=== PATIENT | male | born 1995 | race Caucasian/White ===

== ENCOUNTER 2018-06-30 14:53 | Emergency (ER) | payer BC ==
[2018-06-30] MEDS ORDERED: MORPHINE SULFATE 10 MG/ML INJ IM ONE (15:02)
--- NOTE | 2018-06-30 15:27 | RADIOLOGY REPORT (SQ) ---
EXAM DESCRIPTION: SHOULDER RIGHT 2 OR MORE VIEWS COMPLETED DATE/TIME: 06/30/2018 3:18 pm REASON FOR STUDY: deformity right shoulder pain COMPARISON: None. NUMBER OF VIEWS: Two views. TECHNIQUE: Frontal and lateral images acquired of the right shoulder. LIMITATIONS: None. FINDINGS: MINERALIZATION: Normal. BONES: Anterior dislocation. No fracture. JOINTS: Anterior dislocation. VISUALIZED LUNGS AND RIBS: No pneumothorax. No rib fracture. SOFT TISSUES: No radiopaque foreign body. OTHER: No other significant finding. IMPRESSION: Anterior dislocation of the shoulder. TECHNICAL DOCUMENTATION: JOB ID: [id number] [employer]- All Rights Reserved Reading location - IP/workstation name: [email or web address]
[2018-06-30] MEDS ORDERED: NORMAL SALINE 1000 ML 1,000 ML IV ONE (15:38)
[2018-06-30] MEDS ORDERED: KETOROLAC TROMETHAMINE INJ/PF 30 MG/1 ML SDV IV ONE (15:39)
[2018-06-30] MEDS ORDERED: FENTANYL CITRATE INJ/PF 100 MCG/2 ML AMPUL IV ONE (15:39)
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
--- NOTE | 2018-06-30 16:40 | RADIOLOGY REPORT (SQ) ---
EXAM DESCRIPTION: SHOULDER RIGHT 1 VIEW COMPLETED DATE/TIME: 06/30/2018 4:30 pm REASON FOR STUDY: POST REDUCTION COMPARISON: 06/30/2018. NUMBER OF VIEWS: Two views. TECHNIQUE: Internal rotation and Y view images acquired of the right shoulder. LIMITATIONS: None. FINDINGS: MINERALIZATION: Normal. BONES: No acute fracture or dislocation. No worrisome bone lesions. JOINTS: No dislocation. VISUALIZED LUNGS AND RIBS: No pneumothorax. No rib fracture. SOFT TISSUES: No radiopaque foreign body. OTHER: No other significant finding. IMPRESSION: SATISFACTORY POSITION FOLLOWING CLOSED REDUCTION. NO FRACTURE VISUALIZED. TECHNICAL DOCUMENTATION: JOB ID: [id number] [employer]- All Rights Reserved Reading location - IP/workstation name: [email or web address]
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
[2018-06-30] MEDS ORDERED: HYDROCODONE/ACETAMINOPHEN 5-325 MG (6 TAB/ER DISP) PO PRN (17:47)
[2018-06-30 18:24] VITALS: BP 120/78
== END 2018-06-30 18:22 | disposition home or self-care (01) ==
LOC: ER 14:53
DX: S43.004A Unspecified dislocation of right shoulder joint, initial encounter (principal); S00.11XA Contusion of right eyelid and periocular area, initial encounter; S00.33XA Contusion of nose, initial encounter; V86.96XA Unspecified occupant of dirt bike or motor/cross bike injured in nontraffic accident, initial encounter; Y93.59 Activity, other involving other sports and athletics played individually; J34.1 Cyst and mucocele of nose and nasal sinus
CPT/HCPCS: 99283; 96361; 96374; 96375; 73020; 73030; 70450; 72125; 23650; L3650; J3010; J1885; J2270; J7030